=== PATIENT | male | born 1935 | race Two or more races ===

== ENCOUNTER 2020-09-28 05:48 | Inpatient (IN) | payer MEDICARE, OTHER ==
[~2020-09-28] VITALS: Ht 177.8 cm; Wt 101.4 kg
[2020-09-28] MEDS ORDERED: MORPHINE SULFATE 4 MG/ML, 1ML ONE (06:22)
[2020-09-28] MEDS ORDERED: MORPHINE SULFATE 4 MG/ML, 1ML IVPush PRN (06:30)
--- NOTE | 2020-09-28 06:35 | NUR ---
pt dening any pain at this time. pt resting comfortably on gurney. will withhold iv pain meds for now.
--- NOTE | 2020-09-28 06:38 | NUR ---
pt provided warm blanket. resting on gurney. attached to all monitors.
--- NOTE | 2020-09-28 06:44 | NUR ---
lac to left forehead covered with clean gauze until repaired.
[2020-09-28 06:50] LABS: BASOPHILS % (AUTO) 1 % (0-1); EOSINOPHILS % (AUTO) 3 % (1-7); LYMPHOCYTES % (AUTO) 21 % (22-44); MEAN CORPUSCULAR HEMOGLOBIN 28.6 pg (27.5-34.5); MEAN CORPUSCULAR HGB CONC 32.2 g/dL (33.2-36.2); MEAN PLATELET VOLUME 9.4 fL (7.4-10.4); MONOCYTES % (AUTO) 9 % (2-9); NEUTROPHILS % (AUTO) 65 % (42-75); PLATELET COUNT 112 x10^3/uL (130-400); RED BLOOD COUNT 3.85 x10^6/uL (4.38-5.82); RED CELL DISTRIBUTION WIDTH 15.1 % (9.4-14.8)
--- NOTE | 2020-09-28 06:55 | NUR ---
ASSUMING CARE OF PT AFTER REPORT FROM GELACIO RIZO. PT BACK FROM CT. FAMILY AT BEDSIDE.
[2020-09-28 06:59] LABS: ALBUMIN 2.9 g/dL (3.4-5.0); ANION GAP 3 mmol/L (5-15); CHLORIDE 112 mmol/L (98-107); CREATININE 1.64 mg/dL (0.7-1.3); INTERNATIONAL NORMALIZED RATIO 1.02 (0.93-1.1); PROTHROMBIN TIME 10.9 Seconds (9.6-11.5)
[2020-09-28] MEDS ORDERED: LIDOCAINE-MPF 1%, 5ML INFIL ONE (07:30)
[2020-09-28] MEDS ORDERED: LIDOCAINE 1%-EPI 1:100K, 20ML SQ ONE (07:30)
[2020-09-28] MEDS ORDERED: LIDOCAINE 1%-EPI 1:100K, 20ML ONE (07:32)
[2020-09-28] MEDS ORDERED: LIDOCAINE-MPF 1%, 5ML ONE (07:33)
--- NOTE | 2020-09-28 08:15 | NUR ---
KRUPA YOO TO BEDSIDE FOR SUTURES. VSS. BRYAN.
[2020-09-28] MEDS ORDERED: DIPH,PERTUSS(ACELL),TET VAC/PF 0.5 ML IM-VACC ONE ×2 (08:30→09:21)
[2020-09-28] MEDS ORDERED: BACITRACIN ZINC OINT 500U/GM, 0.9 GM ONE (08:42)
--- NOTE | 2020-09-28 09:05 | NUR ---
PT RESTING COMFORTABLY WITH FAMILY AT BEDSIDE. VSS. BRYAN.
--- NOTE | 2020-09-28 09:59 | NUR ---
pt resting in bed. vss. nadn. family at bedside. to be admitted
[2020-09-28] MEDS ORDERED: ATOR20TA86 PO (10:49)
[2020-09-28] MEDS ORDERED: LEVO25CA4 PO (10:49)
[2020-09-28] MEDS ORDERED: FLUO20CA23 PO (10:49)
[2020-09-28] MEDS ORDERED: OMEP20TA9 PO (10:49)
[2020-09-28] MEDS ORDERED: QUET25TA2 PO ×2 (10:49)
[2020-09-28] MEDS ORDERED: LOSA25TA12 PO (10:49)
[2020-09-28] MEDS ORDERED: DONE10TA7 PO (10:49)
[2020-09-28] MEDS ORDERED: MAGN400T36 PO (10:49)
[2020-09-28] MEDS ORDERED: APIX5TAB4 PO (10:49)
[2020-09-28] MEDS ORDERED: REPA1TAB6 PO (10:49)
[2020-09-28] MEDS ORDERED: MELA3CAP2 PO (10:49)
[2020-09-28] MEDS ORDERED: OMEP-376 PO (10:49)
[2020-09-28] MEDS ORDERED: QUETIAPINE 25MG TABLET PO PRN (11:30)
--- NOTE | 2020-09-28 11:41 | NUR ---
REPORT TO MIKAL
--- NOTE | 2020-09-28 11:59 | NUR ---
PT TRANSFERRED TO FLOOR VIA GURNEY WITH ALL BELONGINGS ACCOMPANIED BY EMT.
[2020-09-28] MEDS ORDERED: BISACODYL 10 MG SUPP PR PRN (12:00)
[2020-09-28] MEDS ORDERED: ACETAMINOPHEN 325 MG TABLET PO PRN (12:00)
[2020-09-28] MEDS ORDERED: POLYETHYLENE GLYCOL 17 GM PACKET PO PRN (12:00)
[2020-09-28] MEDS ORDERED: ONDANSETRON 2MG/ML, 2ML IVPush PRN (12:00)
[2020-09-28] MEDS ORDERED: DOCUSATE 100 MG CAPSULE PO PRN (12:00)
[2020-09-28 13:02] LABS: TROPONIN I < 0.015 ng/mL (0.000-0.045)
[2020-09-28] MEDS: SODIUM CHLORIDE 0.9% 1,000 ML IV SCH (13:16)
[2020-09-28 13:43] VITALS: BP 151/68
[2020-09-28 18:01] LABS: TROPONIN I < 0.015 ng/mL (0.000-0.045)
[2020-09-28 20:07] VITALS: BP 157/67
[2020-09-28] MEDS: QUETIAPINE 25MG TABLET PO SCH (20:28)
[2020-09-29 00:31] LABS: MICROSCOPIC AUTO
[2020-09-29 00:36] VITALS: BP 158/72
[2020-09-29] MEDS: SODIUM CHLORIDE 0.9% 1,000 ML IV SCH ×2 (02:09→13:48)
[2020-09-29 04:53] LABS: BASOPHILS % (AUTO) 1 % (0-1); EOSINOPHILS % (AUTO) 3 % (1-7); LYMPHOCYTES % (AUTO) 24 % (22-44); MEAN CORPUSCULAR HEMOGLOBIN 28.4 pg (27.5-34.5); MEAN PLATELET VOLUME 9.8 fL (7.4-10.4); MONOCYTES % (AUTO) 11 % (2-9); NEUTROPHILS % (AUTO) 62 % (42-75); PLATELET COUNT 112 x10^3/uL (130-400); RED BLOOD COUNT 4.22 x10^6/uL (4.38-5.82); RED CELL DISTRIBUTION WIDTH 15.3 % (9.4-14.8)
[2020-09-29 05:00] LABS: ANION GAP 3 mmol/L (5-15); CALCIUM 8.9 mg/dL (8.5-10.1); CHLORIDE 110 mmol/L (98-107)
[2020-09-29 05:13] LABS: ALANINE AMINOTRANSFERASE 20 U/L (12-78); ALKALINE PHOSPHATASE 83 U/L (45-117); BILIRUBIN,TOTAL 0.3 mg/dL (0.2-1.0); CREATININE 1.29 mg/dL (0.7-1.3); TOTAL PROTEIN 7.2 g/dL (6.4-8.2)
[2020-09-29 07:32] VITALS: BP 179/77
[2020-09-29] MEDS ORDERED: APIXABAN PO SCH (09:00)
[2020-09-29] MEDS: LOSARTAN 25MG TABLET PO SCH (10:12)
[2020-09-29] MEDS: ATORVASTATIN 20 MG TABLET PO SCH (10:12)
[2020-09-29] MEDS: DONEPEZIL 10 MG TABLET PO SCH (10:12)
[2020-09-29] MEDS: FLUOXETINE HCL 20 MG CAPSULE PO SCH (10:12)
[2020-09-29 12:20] VITALS: BP 144/79
[2020-09-29 19:06] VITALS: BP 163/77
[2020-09-29] MEDS: QUETIAPINE 25MG TABLET PO SCH (21:34)
[2020-09-30 03:49] VITALS: BP 156/72
[2020-09-30 06:40] VITALS: BP 154/85
[2020-09-30] MEDS: LOSARTAN 25MG TABLET PO SCH (08:11)
[2020-09-30] MEDS: DONEPEZIL 10 MG TABLET PO SCH (08:11)
[2020-09-30] MEDS: FLUOXETINE HCL 20 MG CAPSULE PO SCH (08:11)
[2020-09-30] MEDS: ATORVASTATIN 20 MG TABLET PO SCH (08:11)
[2020-09-30 12:48] VITALS: BP 149/71
== END 2020-09-30 18:04 | disposition home or self-care (01) | DRG 580 ==
LOC: ED 09:08 → EDIP 10:27 → 4EST 11:59
PROVIDERS: ADMIT Hospitalist; ATTEND Hospitalist
PROC: 0JQ10ZZ Repair Face Subcutaneous Tissue and Fascia, Open Approach (ICD-10-PCS; principal; 2020-09-28)
DX: S01.81XA Laceration without foreign body of other part of head, initial encounter (principal); N17.9 Acute kidney failure, unspecified; S01.01XA Laceration without foreign body of scalp, initial encounter; E03.9 Hypothyroidism, unspecified; E11.9 Type 2 diabetes mellitus without complications; E78.5 Hyperlipidemia, unspecified; Z66 Do not resuscitate; E86.0 Dehydration; F03.90 Unspecified dementia, unspecified severity, without behavioral disturbance, psychotic disturbance, mood disturbance, and anxiety; I10 Essential (primary) hypertension; W18.30XA Fall on same level, unspecified, initial encounter; Z74.01 Bed confinement status; Z79.01 Long term (current) use of anticoagulants; Z86.61 Personal history of infections of the central nervous system; Z86.73 Personal history of transient ischemic attack (TIA), and cerebral infarction without residual deficits; Z87.891 Personal history of nicotine dependence; Z95.0 Presence of cardiac pacemaker; Y93.89 Activity, other specified; Y92.89 Other specified places as the place of occurrence of the external cause; Z88.0 Allergy status to penicillin
CPT/HCPCS: 12052; 36415; 70450; 80048; 80053; 81001; 82040; 83735; 84100; 84443; 84484; 85025; 85610; 85730; 90471; 90715; 93005; 93306; G0378; J7030